=== PATIENT | male | born 1995 | race Two or more races ===

== ENCOUNTER 2022-12-08 00:30 | Emergency (ER) | payer MEDICAID, OTHER ==
[2022-12-08] MEDS ORDERED: Lidocaine 1% 10 ML MDV INJECT ONE (00:38)
[2022-12-08] MEDS ORDERED: Diphtheria,Pertussis(Acell),Tetanus Vaccine 0.5 ML Syringe IM ONE (00:55)
== END 2022-12-08 01:10 | disposition home or self-care (01) ==
LOC: VM.ED 00:30
DX: S61.212A Laceration without foreign body of right middle finger without damage to nail, initial encounter (principal); Z23 Encounter for immunization; W25.XXXA Contact with sharp glass, initial encounter
CPT/HCPCS: 12001; 90471; 90715; 99282-25; J3490